=== PATIENT | female | born 1960 | race Caucasian/White ===

== ENCOUNTER → 2016-10-08 | Outpatient (CLI) | payer OTHER ==
[~2016-10-08] MED LIST: AMIL5 PO; BACT800T5 PO; BCOMPLEX; BENZ100 PO; CALCTAB59 PO; E-20CAP PO; FLAX10008; GLUCTAB PO; HYDR-3534 PO; LISI-519 PO; LISI5 PO; METF500T4 PO; METR500T10 PO; SIMV10TA PO; VENTAER INH; ZITHTAB PO
[2016-10-08 08:28] LABS: MICRO ALBUMIN RANDOM URINE RAW 10.6 MG/L (0.0-30.0)
[2016-10-08 08:35] LABS: ALKALINE PHOSPHATASE 74 U/L (45-117); ALT (GPT) 31 U/L (10-53); ANION GAP 8 MEQ/L (5-15); AST (GOT) 24 U/L (15-37); BICARBONATE 30.5 MEQ/L (21.0-32.0); BLOOD UREA NITROGEN 11 MG/DL (7-18); CHLORIDE 95 MEQ/L (98-107); FREE T4 0.85 NG/DL (0.76-1.46); GLOMERULAR FILTRATION RATE 80 ML/MIN (>89); GLUCOSE,FASTING 104 MG/DL (74-99); LDL CHOLESTEROL 59 MG/DL (0-99); POTASSIUM 3.9 MEQ/L (3.5-5.1); SODIUM (NA) 133 MEQ/L (136-145); TOTAL BILIRUBIN ADULT 0.4 MG/DL (0.2-1.0)
[2016-10-08 16:44] LABS: HEMOGLOBIN A1a 1.3 %; HEMOGLOBIN A1b 1.6 %; HEMOGLOBIN Ao 84.5 %; HEMOGLOBIN LA1C 2.2 %; HEMOGLOBIN P3 3.7 %
== END ==
LOC: CLAB 07:31
PROVIDERS: ATTEND Internal Medicine Endocrinology, Diabetes & Metabolism
DX: E11.9 Type 2 diabetes mellitus without complications (principal); E78.5 Hyperlipidemia, unspecified
CPT/HCPCS: 36415; 80053; 80061; 82043; 83036; 84439; 84443

== ENCOUNTER 2016-10-31 14:41 | Emergency (ER) | payer OTHER ==
[~2016-10-31] VITALS: Ht 172.7 cm; Wt 85.0 kg
[~2016-10-31 14:41] MED LIST changes: -BACT800T5 PO; -BENZ100 PO; -HYDR-3534 PO; -LISI-519 PO; -METF500T4 PO; -METR500T10 PO; -VENTAER INH; -ZITHTAB PO
[2016-10-31 14:47] VITALS: BP 139/70; PULSE 83; RESP 16; TEMP 97.9; O2SAT 100
[2016-10-31] MEDS ORDERED: AMIL5 PO (15:32)
[2016-10-31] MEDS ORDERED: METF500T4 PO (15:32)
[2016-10-31] MEDS ORDERED: LISI-519 PO (15:32)
[2016-10-31] MEDS ORDERED: SIMV10TA PO (15:32)
[2016-10-31] MEDS ORDERED: HYDR-3534 PO (16:06)
[2016-10-31] MEDS ORDERED: METR500T10 PO (16:06)
[2016-10-31] MEDS ORDERED: BACT800T5 PO (16:06)
[2016-10-31] MEDS ORDERED: BUPIVACAINE HCL PF 0.5% 10 ML VIAL INFIL ONE (16:15)
[2016-10-31] MEDS ORDERED: metroNIDAZOLE 500 MG INJ 100 ML IV ONE (16:15)
[2016-10-31] MEDS ORDERED: CIPROFLOXACIN 400 MG PREMIX 200 ML IV ONE (16:15)
[2016-10-31] MEDS ORDERED: LIDOCAINE HCL 1% 50 ML VIAL INFIL ONE (16:15)
--- NOTE | 2016-10-31 16:15 | PD ---
HPI Chief Complaint: Bite or Sting Time Seen by Provider: 16:08 Travel History International Travel<30 days: No Contact w/Intl Traveler<30days: No Traveled to known affect area: No History of Present Illness HPI Patient is a 56-year-old female presenting with Ice to the right hand. She is right-hand dominant. This is her cat who has been vaccinated. She does not have concern for rabies as it is an indoor cat as well. This occurred approximately 9 AM this morning. Get better in the dorsum of the hand, 2 puncture wounds. Bleeding was minimal. Pain is minimal but has swollen and become painful. The pain in the wrist or fingers. She denies weakness or paresthesias. She denies fever, chills, nausea, vomiting or lymphadenopathy. The patient reports last tetanus vaccine was approximately 15 years prior and she had an allergic reaction. Was fully vaccinated as a child and had multiple tetanus boosters with increasing reaction and she was told never to take an additional one. She denies diabetes, immunocompromise states and peripheral vascular disease. PFSH Past Medical History High Cholesterol: Yes Diabetes: Yes Patient Takes Glucophage: Yes Diminished Hearing: No Hypertension: Yes Tetanus Vaccination: < 5 Years Influenza Vaccination: No Social History Alcohol Use: Yes (social) Tobacco Use: No Substance Use: No Allergies-Medications (Allergen,Severity, Reaction): Coded Allergies: Cephalosporins (Verified Allergy, Severe, Rash, 10/31/16) Penicillin (Verified Allergy, Severe, Rash, 10/31/16) Uncoded Allergies: EPIDURAL STEROID INJECTION (Allergy, Severe, Hypertension, 07/10/13) Reported Meds & Prescriptions Reported Meds & Active Scripts Active Lortab (Hydrocodone-Acetaminophen) 7.5-325 Mg Tab 1 Tab PO Q6H PRN Metronidazole 500 Mg Tab 500 Mg PO TID 10 Days Bactrim DS (Sulfamethoxazole-Trimethoprim) 800-160 Mg Tab 1 Tab PO BID Reported Simvastatin 10 Mg Tab 10 Mg PO DAILY Metformin ER (Metformin HCl) 500 Mg Figueroa 500 Mg PO DAILY With evening meal Lisinopril 5 Mg Tab 5 Mg PO DAILY Amiloride (Amiloride HCl) 5 Mg Tab 5 Mg PO DAILY Review of Systems General / Constitutional: No: Fever Musculoskeletal: Positive: Edema, Pain, No: Arthralgias, Limited ROM, Weakness , Cramping Skin: Positive Other (cat Bite right hand) Neurologic: No: Weakness, Focal Abnormalities, Paresthesia, Sensory Disturbance Hematologic/Lymphatic: No: Lymph Node Enlargement Physical Exam Narrative GENERAL: Well-developed and well-nourished adult female in no acute distress. SKIN: Warm and dry. Good turgor without tenting. HEAD: Normocephalic and atraumatic. NECK: Supple, no midline tenderness, crepitus or step-offs. Trachea midline, no JVD. CARDIOVASCULAR: Regular rate and rhythm without murmurs, rubs, clicks or gallops. Radial pulses 2+ bilaterally. Capillary refill less than 2 seconds distal tip of all fingers of right hand. RESPIRATORY: Clear to auscultation bilaterally with symmetrical rise and fall, no distress or use of accessory muscles. LYMPH: Negative right epitrochlear and axillary lymphadenopathy. Negative bilateral supraclavicular, cervical and facial lymphadenopathy. MUSCULOSKELETAL: 2 small puncture wounds over the dorsum of the right hand with moderate edema and ecchymosis. No erythema or warmth. Diffusely tender to palpation in this region. The pain with palpation of the wrist, MCP joints or fingers. No crepitus or step-offs. Full range of motion in all joints of the right hand, wrist and elbow. Patient freely moving all four extremities spontaneously. Extremities without clubbing or cyanosis. No obvious deformities. NEUROLOGIC: CN II-XII grossly intact. Awake and alert.Sensation intact and strength 5/5 over radial, median, and ulnar nerve distributions bilaterally. Sensation intact to the distal tip of all 5 fingers of right hand. Normal speech. PSYCHIATRIC: Appropriate mood and affect; insight and judgment normal. Data Data Last Documented VS Vital Signs Date Time Temp Pulse Resp B/P Pulse Ox O2 Delivery O2 Flow Rate FiO2 10/31/16 14:47 97.9 83 16 139/70 100 Orders Hand, Complete ([id number]) (10/31/16 16:02) Ice/Cold Pack (10/31/16 16:02) Bupivacaine Pf 0.5% Inj (Marcaine Pf 0.5 (10/31/16 16:15) Lidocaine 1% Inj (50 Ml) (Xylocaine 1% I (10/31/16 16:15) Ciprofloxacin 400 Mg Premix (Cipro 400 M (10/31/16 16:15) Metronidazole 500 Mg Inj (Flagyl 500 Mg (10/31/16 16:15) Morphine Inj (Morphine Inj) (10/31/16 17:30) Ondansetron Inj (Zofran Inj) (10/31/16 17:30) MDM Medical Decision Making Medical Screen Exam Complete: Yes Emergency Medical Condition: Yes Interpretation(s) Last 24 hours Impressions Hand X-Ray 10/31/16 1602 Signed Impressions: Service Date/Time: Monday, October 31, 2016 17:07 - CONCLUSION: 1. No acute bony findings. No radiopaque foreign body. Tyree Greer MD Differential Diagnosis Cat bite versus puncture wound versus wound foreign body versus wound infection Narrative Course Patient is a 56-year-old female who is right-hand dominant presenting with cat bite to right hand. This occurred approximately 7 hours prior to exam. It was her cat is vaccinated. No concern for rabies per the patient as it is indoors and vaccinated. There are 2 small puncture wounds with moderate edema. She is neurovascularly intact. No evidence of foreign body or bony injury on exam. Normal range of motion. She is afebrile and nontoxic-appearing. Given the length of time I do not believe infection when at that time to set in yet. Patient has multiple allergies to penicillin and cephalosporins, alternative empiric regimen for cat Bites is ciprofloxacin and metronidazole which was given IV. Ordered x-ray of the right hand which shows no fracture or foreign body. Anesthetized the wounds with local anesthetic and irrigated and cleansed. Tetanus vaccine was not updated today as patient states she has had multiple boosters with increasing allergic reaction and was told never to take an additional one. She was fully vaccinated as a child and last booster was 15 years prior. Since she likely has antibodies no immune globulin would be warranted. I did explain to the patient that close follow-up with hand specialist and her PCP would be important and she acknowledges her understanding. Given outpatient rx for Bactrim and Metronidazole per Up to Date recommendations given her allergies. Also rx for lortab. Recommend follow up with PCP in 1-2 days.See discharge paperwork for further instructions. The plan was discussed with the patient who acknowledged their understanding and agreement. Reinforced the follow-up with primary care is critically important. Patient instructed on emergent conditions that should prompt return to ED. Procedures Procedure Narrative Wound cleansin puncture wounds to the dorsum of the right hand. These were cleansed with alcohol and injected with 0.75 cc each of a 50-50 mix of 1% lidocaine and 0.5% bupivacaine. Close the area thoroughly with iodinated gauze multiple times. No visible contaminants or foreign bodies. Irrigated each with 500 cc of sterile saline. Patient tolerated the procedure well was without complication. Sterile dressing applied along with compression bandage to help with swelling. Diagnosis Primary Impression: Cat bite of hand Qualified Code: S61.451A - Cat bite of hand, right, initial encounter Patient Instructions: Animal Bite (ED), General Instructions, Puncture Wound ( ED) Additional Instructions: Take medications as prescribed Your medications may cause drowsiness. Do not take with alcohol or sedatives. Do not operate a motor vehicle or heavy machinery while on medication. Change bandage every 12 hours When changing bandage wash area with soap and water Avoid swimming or submerging wound in any water(bath, fernández, pool, ocean, etc) Follow-up with PCP in 1-2 days Return to the ED for any acute worsening of symptoms including worsening swelling, warmth, spreading redness, pustular drainage, fever Med/Other Pt SpecificInfo: Prescription(s) given Scripts Hydrocodone-Acetaminophen (Lortab)7.5-325 Mg Tab1 Tab PO Q6H PRN (PAIN) #15 TAB Ref 0 Prov:Anuradha Morales DO 10/31/16 Metronidazole 500 Mg [id number] Mg PO TID 10 Days Ref 0 Prov:Anuradha Morales DO 10/31/16 Sulfamethoxazole-Trimethoprim (Bactrim DS)800-160 Mg Tab1 Tab PO BID #20 TAB Prov:Anuradha Morales DO 10/31/16 Disposition: 01 DISCHARGE HOME Condition: Stable Nazario Harden III Oct 31, 2016 16:15
[2016-10-31] MEDS ORDERED: ONDANSETRON HCL 4 MG/2 ML VIAL IV PUSH ONE (17:30)
[2016-10-31] MEDS ORDERED: MORPHINE SULFATE 4 MG/ML INJ IV PUSH ONE (17:30)
--- NOTE | 2016-10-31 17:31 | RADHPO ---
EXAM DATE/TIME: 10/31/2016 17:07 [facility] COMPARISON: No previous studies available for comparison. INDICATIONS : Cat bite with multiple puncture wounds to back of hand MEDICAL HISTORY : Diabetes mellitus type II. SURGICAL HISTORY : None. ENCOUNTER: Initial ACUITY: 1 day PAIN SCORE: 6/10 LOCATION: Right hand FINDINGS: Three view examination of the right hand demonstrates no soft tissue swelling, dislocation, or fractu re. The carpal bones appear intact. The interphalangeal and metacarpophalangeal joints are intact. Bony mineralization is normal. CONCLUSION: 1. No acute bony findings. No radiopaque foreign body. Tyree Greer MD on October 31, 2016 at 17:29 Board Certified Radiologist. This report was verified electronically.
[2016-10-31 18:27] VITALS: BP 133/84
[2017-01-18] MEDS ORDERED: BENZ100 PO (19:49)
[2017-01-18] MEDS ORDERED: ZITHTAB PO (19:49)
[2017-01-18] MEDS ORDERED: VENTAER INH (19:49)
== END 2016-10-31 18:29 | disposition home or self-care (01) ==
LOC: PHED 14:41 → PHEFT 18:29
DX: S61.451A Open bite of right hand, initial encounter (principal); E78.00 Pure hypercholesterolemia, unspecified; E11.9 Type 2 diabetes mellitus without complications; I10 Essential (primary) hypertension; Z88.7 Allergy status to serum and vaccine; W55.01XA Bitten by cat, initial encounter; Y92.009 Unspecified place in unspecified non-institutional (private) residence as the place of occurrence of the external cause; Y99.8 Other external cause status
CPT/HCPCS: 73130; 96365; 96375; 99283; J0744; J2270; J2405

== ENCOUNTER → 2017-04-20 | Outpatient (CLI) | payer OTHER ==
[~2017-04-20] MED LIST changes: +BACT800T5 PO; -BCOMPLEX; +BENZ100 PO; -CALCTAB59 PO; -E-20CAP PO; +ESTR42.5V VAGINAL; -FLAX10008; -GLUCTAB PO; +HYDR-3534 PO; +HYDR12.57 PO; +LISI-519 PO; -LISI5 PO; +METF500T4 PO; +METR500T10 PO; +VAGI10TA VAGINAL; +VENTAER INH; +ZITHTAB PO
[2017-04-20 09:12] LABS: ANION GAP 11 MEQ/L (5-15); AST (GOT) 23 U/L (15-37); BICARBONATE 28.1 MEQ/L (21.0-32.0); BLOOD UREA NITROGEN 16 MG/DL (7-18); CHLORIDE 91 MEQ/L (98-107); GLOMERULAR FILTRATION RATE 86 ML/MIN (>89); GLUCOSE,FASTING 123 MG/DL (74-99); SODIUM (NA) 130 MEQ/L (136-145)
[2017-04-20 09:17] LABS: ALKALINE PHOSPHATASE 85 U/L (45-117); ALT (GPT) 26 U/L (10-53); HDL CHOLESTEROL 81.6 MG/DL (40.0-60.0); LDL CHOLESTEROL 70 MG/DL (0-99); TOTAL BILIRUBIN ADULT 0.5 MG/DL (0.2-1.0)
[2017-04-20 11:23] LABS: HEMOGLOBIN A1a 1.3 %; HEMOGLOBIN A1b 1.7 %; HEMOGLOBIN Ao 84.1 %; HEMOGLOBIN LA1C 2.4 %; HEMOGLOBIN P3 3.9 %
== END ==
LOC: CLAB 08:08
PROVIDERS: ATTEND Internal Medicine Endocrinology, Diabetes & Metabolism
DX: E11.9 Type 2 diabetes mellitus without complications (principal); E78.5 Hyperlipidemia, unspecified
CPT/HCPCS: 36415; 80053; 80061; 83036

== ENCOUNTER → 2017-10-18 | Outpatient (CLI) | payer OTHER ==
[~2017-10-18] MED LIST changes: -BACT800T5 PO; -BENZ100 PO; -METR500T10 PO; -VAGI10TA VAGINAL; -VENTAER INH; -ZITHTAB PO
[2017-10-18 08:40] LABS: AUTOMATED NEUTROPHIL # 6.6 TH/MM3 (1.8-7.7); BASOPHIL # 0.1 TH/MM3 (0-0.2); BASOPHIL % 0.8 % (0.0-2.0); EOSINOPHIL # 0.2 TH/MM3 (0-0.4); EOSINOPHIL % 2.1 % (0.0-4.0); HEMATOCRIT 38.5 % (35.0-46.0); HEMOGLOBIN 13.8 GM/DL (11.6-15.3); LYMPH % 18.6 % (9.0-44.0); LYMPHOCYTE # 1.7 TH/MM3 (1.0-4.8); MEAN CELL VOLUME 96.2 FL (80.0-100.0); MEAN CORPUSCULAR HEMOGLOBIN 34.4 PG (27.0-34.0); MEAN CORPUSCULAR HGB CONC 35.7 % (32.0-36.0); MEAN PLATELET VOLUME 7.9 FL (7.0-11.0); MONO % 7.2 % (0.0-8.0); MONOCYTE # 0.7 TH/MM3 (0-0.9); NEUT % 71.3 % (16.0-70.0); PLATELET COUNT 286 TH/MM3 (150-450); RED CELL DISTRIBUTION WIDTH 12.4 % (11.6-17.2); WHITE BLOOD COUNT 9.3 TH/MM3 (4.0-11.0)
[2017-10-18 09:17] LABS: ALBUMIN 4.1 GM/DL (3.4-5.0); AST (GOT) 22 U/L (15-37); BICARBONATE 31.9 MEQ/L (21.0-32.0); BLOOD UREA NITROGEN 13 MG/DL (7-18); CALCIUM 9.5 MG/DL (8.5-10.1); CHLORIDE 92 MEQ/L (98-107); CREATININE 0.81 MG/DL (0.50-1.00); GLOMERULAR FILTRATION RATE 73 ML/MIN (>89); GLUCOSE,FASTING 108 MG/DL (74-99); MAGNESIUM 1.9 MG/DL (1.5-2.5); SODIUM (NA) 131 MEQ/L (136-145)
[2017-10-18 09:18] LABS: ALT (GPT) 29 U/L (10-53); CHOLESTEROL 189 MG/DL (120-200); TRIGLYCERIDES 187 MG/DL (42-150)
[2017-10-18 09:21] LABS: ALKALINE PHOSPHATASE 77 U/L (45-117); CHOLESTEROL/ HDL RATIO 2.17 RATIO; HDL CHOLESTEROL 86.7 MG/DL (40.0-60.0); LDL CHOLESTEROL 65 MG/DL (0-99); TOTAL BILIRUBIN ADULT 0.5 MG/DL (0.2-1.0); TOTAL PROTEIN 7.8 GM/DL (6.4-8.2)
[2017-10-18 15:57] LABS: HEMOGLOBIN A1C 6.1 % (4.3-6.0)
== END ==
LOC: CLAB 08:21
DX: E11.9 Type 2 diabetes mellitus without complications (principal)
CPT/HCPCS: 36415; 80053; 80061; 82043; 83036; 83735; 85025